=== PATIENT | female | born 1960 | race Caucasian/White ===

== ENCOUNTER 2021-08-24 08:52 | Day surgery (SDC) | payer OTHER ==
[2021-08-24] VITALS (10 sets, daily range): BP systolic 104–140; BP diastolic 58–83; PULSE 54–71; TEMP 97.3–98.8
[~2021-08-24] VITALS: Ht 172.7 cm; Wt 107.3 kg
[~2021-08-24 08:52] MED LIST: ASPI325T6 PO; COLACE 100100 MG/CAP PO; CYANOCOBAL1000 MCG/1 IM; EFFEXOR 75M75 MG/TAB PO; FOLIC ACID 40400 MCG PO; IRON TABLETS325 MG PO; MOBIC 7.5MG7.5 MG PO; MYRBETR50MG PO; NORCO 325 MG-7.1 TAB PO; PREMPRO 0.3 MG-1 TAB PO; PREMPRO 0.625/21 TAB PO; REQUIP 1MG T1 MG/TAB PO; REQUIP0.25 MG PO; TRICOR145 MG PO; VESICARE10 MG PO; VITAMIN B1100 MCG/ML IM; VITAMIN C500 MG PO; VITAMIN D5000 IU PO
[2021-08-24] MEDS ORDERED: VITAMIN D31000 I1 PO (10:50)
[2021-08-24] MEDS ORDERED: PROTONIX 40MG T40 MG PO (11:01)
[2021-08-24] MEDS ORDERED: LASIX 40MG TABL40 MG PO (11:01)
[2021-08-24] MEDS ORDERED: LEXAPRO20 MG PO (11:02)
[2021-08-24] MEDS ORDERED: CRANBERRY250 MG PO (11:05)
[2021-08-24] MEDS ORDERED: [UNRECOGNIZED DRUG - OTHER] PO (11:09)
[2021-08-24] MEDS ORDERED: PROBIOTIC 2 BI1 EACH PO (11:10)
[2021-08-24] MEDS ORDERED: TRULICITY0.75 MG/0. SQ (11:12)
--- NOTE | 2021-08-24 15:00 | NUR ---
PATIENT ADMITED INTO ROOM 347 POST OP. ORIENTED BUT DROWSY. VSS. NO C/O PAIN OR NAUSEA. PATIENT IS UNABLE TO MOVE BLE. RTK DRESSING IS CD&I WITH ACEWRAP. SCD'S TO BLE. POSITIVE PEDAL PULSES TO BLE. HEAD TO TOE ASSESSMENT WNL. LIQUIDS AT BEDSIDE. PATIENT RESTING. IN ROOM. CALL LIGHT IN REACH.
--- NOTE | 2021-08-24 20:30 | NUR ---
Pt. sitting up at bedside. Pt. is A&OX3, assessment complete. INT to lt. hand patent. Pt. reports pain at a 5 on pain scale, giving pain meds per orders. Pt. denies further needs, call light within reach.
[2021-08-25 03:29] VITALS: BP 122/69; PULSE 52; TEMP 97.9
[2021-08-25 06:49] LABS: HEMATOCRIT 31.9 % (37.0-47.0); HEMOGLOBIN 9.8 g/dl (12.5-16.0)
[2021-08-25 07:04] VITALS: BP 139/62; PULSE 70; TEMP 98.3
--- NOTE | 2021-08-25 07:28 | NUR ---
Pt upright in bed, right knee elevated with pillow, SCD's on both legs, BORIS hose on left leg. Shift assessment complete with CMS checks. INT to left hand with no redness or swelling. Pt reports no BM since surgery and not passing flatus. Bowel sounds audible x4 quadrants. Vasyl bandage to right leg CDI reports no pain or discomfort. Call light within reach.
--- NOTE | 2021-08-25 08:20 | NUR ---
Pt upright in bed. Reports no pain or discomfort. Vasyl bandage, 4x4 gauze, and vasaline gauze CDI on right leg. Bandage removed. Sutures intact, wound edges well approximated, warm to touch, with slight swelling. Aquacel dressing placed. SCD's on Pt and right knee elevated with pillow. Call light within reach. Pt tolerated procedure well.
--- NOTE | 2021-08-25 10:36 | NUR ---
Initial visit; Patient thanked Intermediate Teacher for looking in on her and offering prayer and God's blessings. Intermediate Teacher will keep Ines in her prayers.
[2021-08-25 10:44] VITALS: BP 130/65; PULSE 58; TEMP 98.2
--- NOTE | 2021-08-25 11:00 | NUR ---
Patient is doing well this morning. Minimal complaints of pain. No nausea. She is doing well with transfers. Dressing changed by student nurse from gauze and acewarp to aquacel. Patient stated the scheduled pain medications is working well at this time. Her has been in to visit. No other changes at this time. Call light within reach.
--- NOTE | 2021-08-25 11:15 | NUR ---
SW met with patient to discuss d/c plan and needs. Patient reports she and her Eris ([phone]) live in [place] where she was fully independent prior. PCP is Dr. Argueta in [place] and she receives her prescriptions from [facility]. She states she has a walker and a cane if she needs them. Patient's is retire and available to help her at all times. SW will continue to follow. D/C Plan: D/C home with
[2021-08-25] MEDS ORDERED: ELIQUIS 2.5 PO (16:31)
[2021-08-25] MEDS ORDERED: ROXICODONE 55 MG/TAB PO (16:32)
[2021-08-25] MEDS ORDERED: SENOKOT S 50 MG1 TAB PO (16:33)
--- NOTE | 2021-08-25 17:10 | NUR ---
Patient is discharging home. Discharge instructions discussed with patient. No questions verbalized. INT discontinued. Explained when follow up appointment is. Explained what medications are ordered and were sent to pharmacy for pick-up. Copies of discharge instructions given to patient. All belongings packed up and sent with patient. Patient walked out via wheel chair.
== END 2021-08-25 17:30 | disposition home or self-care (01) ==
LOC: SDCO 08:52 → INPTSU 08:52 → SURG 08:52 → INPTSU 15:00 → SURG 15:00 → SDCO 08-25 17:30 → SURG 09-04 07:30
PROVIDERS: Orthopaedic Surgery
DX: M17.11 Unilateral primary osteoarthritis, right knee (principal); G47.33 Obstructive sleep apnea (adult) (pediatric); G25.81 Restless legs syndrome; K21.9 Gastro-esophageal reflux disease without esophagitis; Z20.822 Contact with and (suspected) exposure to COVID-19; Z86.718 Personal history of other venous thrombosis and embolism; Z79.01 Long term (current) use of anticoagulants; Z79.1 Long term (current) use of non-steroidal anti-inflammatories (NSAID); Z98.84 Bariatric surgery status; Z79.2 Long term (current) use of antibiotics; Z87.440 Personal history of urinary (tract) infections
CPT/HCPCS: OP; A9284; C1713; C1776; J0690; J1100; J1885; J2250; J2370; J2405; J2704; J3010; J7120